=== PATIENT | male | born 1955 | race Caucasian/White ===

== ENCOUNTER 2019-08-20 04:09 | Emergency (ER) | payer MEDICARE ==
[~2019-08-20] VITALS: Ht 188 cm; Wt 65.0 kg
[2019-08-20] MEDS ORDERED: CEPH500C5 PO (04:27)
[2019-08-20 04:34] VITALS: BP 128/80
== END 2019-08-20 04:37 | disposition home or self-care (01) ==
LOC: ER 04:10
DX: K13.0 Diseases of lips (principal); K40.90 Unilateral inguinal hernia, without obstruction or gangrene, not specified as recurrent; F17.200 Nicotine dependence, unspecified, uncomplicated; Z98.890 Other specified postprocedural states; Z59.0 Homelessness; Z79.2 Long term (current) use of antibiotics
CPT/HCPCS: 99284